=== PATIENT | female | born 1975 | race Caucasian/White ===

== ENCOUNTER → 2019-11-27 14:50 | Outpatient (CLI) | payer OTHER, SELFPAY ==
--- NOTE | ~2019-11-27 | MM_ITS ---
EXAMINATION: MM scrn caty implant BI w maura HISTORY: Screening mammogram TECHNIQUE: Craniocaudal and mediolateral oblique 3-D tomosynthesis images with implant displacement a nd synthetic 2-D images were generated. Craniocaudal and mediolateral oblique views of the breasts wi thout implant displacement were obtained using full field digital mammography. CAD analysis was submi tted and interpreted. COMPARISON: 08/11/2018, 06/01/2017 BREAST PARENCHYMAL COMPOSITION: The breasts are extremely dense, which lowers the sensitivity of mamm ography. FINDINGS: There is no evidence of suspicious mass, calcification, or architectural distortion to sugg est malignancy in either breast. There has been no suspicious interval change. IMPRESSION: 1. No mammographic evidence of malignancy. 2. Recommend routine screening mammography in one year. BI-RADS Category 1: Negative Reviewed, dictated and finalized at location A.
== END ==
PROVIDERS: PCP Emergency Medicine; Visit Provider Obstetrics & Gynecology
DX: Z12.31 Encounter for screening mammogram for malignant neoplasm of breast (principal)
CPT/HCPCS: 77063; 77067

== ENCOUNTER → 2021-02-01 09:24 | Outpatient (CLI) | payer OTHER, SELFPAY ==
--- NOTE | ~2021-02-01 | MM_ITS ---
EXAMINATION: MM scrn caty implant BI w maura HISTORY: Screening mammogram TECHNIQUE: Craniocaudal and mediolateral oblique 3-D tomosynthesis images with implant displacement a nd synthetic 2-D images were generated. Craniocaudal and mediolateral oblique views of the breasts wi thout implant displacement were obtained using full field digital mammography. CAD analysis was submi tted and interpreted. COMPARISON: Comparison to multiple prior studies sequentially, with oldest reviewed study dated 04/2017. BREAST PARENCHYMAL COMPOSITION: The breasts are heterogeneously dense, which may obscure small masses . FINDINGS: There is no evidence of suspicious mass, calcification, or architectural distortion to sugg est malignancy in either breast. There has been no suspicious interval change. IMPRESSION: 1. No mammographic evidence of malignancy. 2. Recommend routine screening mammography in one year. BI-RADS Category 1: Negative Reviewed, dictated and finalized at location A. [employer]
== END ==
PROVIDERS: Visit Provider Obstetrics & Gynecology
DX: Z12.31 Encounter for screening mammogram for malignant neoplasm of breast (principal)
CPT/HCPCS: 77063; 77067

== ENCOUNTER 2021-02-21 11:09 | Emergency (ER) | payer OTHER, SELFPAY ==
[2021-02-21 12:20] VITALS: BP 141/95; PULSE 72; RESP 16; TEMP 36.9; O2SAT 98
--- NOTE | 2021-02-21 13:23 | ED.URI ---
HPI - URI/Sore Throat General Chief Complaint: Upper Respiratory Infection Stated Complaint: body aches,headache,vomiting Source: patient Mode of arrival: ambulatory Limitations: no limitations History of Present Illness HPI Narrative: Patient is a 45-year-old female who presents complaining of sore throat, nausea, vomiting, body aches, headache, and fatigue. Patient is concerned as she cares for her father who is immune compromised. Patient reports taking [id number] medications with limited relief. Related Data Allergies Allergy/AdvReac Type Severity Reaction Status Date / Time sulfamethoxazole Allergy Unknown rash Verified 02/21/21 13:23 trimethoprim Allergy Unknown rash Verified 02/21/21 13:23 Review of Systems Review of Systems: CONSTITUTIONAL: Denies fever, chills, or sweats. Reports fatigue EYES: Denies visual changes, redness, or discharge. ENT: Reports sore throat CARDIOVASCULAR: Denies chest pain, palpitations, or edema. RESPIRATORY: Denies cough or dyspnea. GASTROINTESTINAL: Denies abdominal pain, reports nausea and vomiting x3. GENITOURINARY: Denies dysuria or hematuria. SKIN: Denies rash or itching. MUSCULOSKELETAL: Denies back pain, joint pain, or myalgia. NEUROLOGIC: Reports headache, denies numbness, dizziness, or weakness. PSYCHIATRIC: Denies anxiety or depression. PMFSH Past Medical History Medical History No significant past medical history Surgical History Surgical History No significant past surgical history Social History Social History (Updated 02/21/21 @ 13:28 by SALMA Pedroza) Smoking status: Never smoker Alcohol intake: current Substance use: never Living arrangements: with family Comments At the time of signature, I have reviewed and agree with nursing past medical, surgical, social, and family history unless otherwise noted. Please see nursing chart for further information. There is no relevant family history pertinent to the presenting complaint. Exam Narrative: GENERAL: Well-appearing, well-nourished, and in no acute distress. HEAD: Normocephalic, atraumatic. EYES: EOMI. No redness or drainage. Conjunctiva are normal. ENT: Mucous membranes pink and moist. Nares clear. No rhinorrhea. TMs normal bilaterally. Throat with mild erythema. Uvula midline. NECK: AROM. Supple. No lymphadenopathy. CHEST: No respiratory distress. HEART: Regular rate and rhythm. EXTREMITIES: Normal range of motion. No edema. SKIN: Warm, dry, no rash. NEURO: No focal deficits. Alert and oriented x3. Gait steady. PSYCH: Normal affect. No signs of depression or anxiety. Course Vital Signs Vital signs: Vital Signs Temperature 36.9 C 02/21/21 12:20 Pulse Rate 72 02/21/21 12:20 Respiratory Rate 16 02/21/21 12:20 Blood Pressure 141/95 H 02/21/21 12:20 Pulse Oximetry 98 02/21/21 12:20 Temperature 36.9 C 02/21/21 12:20 Pulse Rate 72 02/21/21 12:20 Respiratory Rate 16 02/21/21 12:20 Blood Pressure 141/95 H 02/21/21 12:20 Pulse Oximetry 98 02/21/21 12:20 Reviewed-patient is informed that they may have pre-hypertension or hypertension based on a blood pressure reading. I recommend the patient call the primary care provider listed on their discharge instructions or a physician of their choice this week to arrange follow-up for further evaluation of possible pre-hypertension or hypertension. MDM - URI/Sore Throat MDM Narrative Medical decision making narrative: Patient's rapid Covid, rapid strep and influenza are all negative at this time. Covid PCR to be sent. Patient to be sent with a prescription for Zofran for nausea. Patient is aware of the need for quarantine until PCR Covid testing returns. Patient agrees with plan of care. Patient is stable for discharge home with outpatient follow-up as discussed. Differential Diagnosis Differential diag
[2021-02-22 15:26] LABS: SARS-CoV-2 RNA PCR Positive
== END 2021-02-21 13:35 | disposition home or self-care (01) ==
PROVIDERS: Emergency Provider Nurse Practitioner; PCP Emergency Medicine
DX: U07.1 COVID-19 (principal)
CPT/HCPCS: 87081; 87426; 87804; 87880; 99213; C9803; G0463; U0003; U0005

== ENCOUNTER 2022-02-03 15:54 | Outpatient (CLI) | payer SELFPAY ==
--- NOTE | ~2022-02-03 | MM_ITS ---
EXAMINATION: MM scrn caty implant BI w maura HISTORY: Screening mammogram TECHNIQUE: Craniocaudal and mediolateral oblique 3-D tomosynthesis images with implant displacement a nd synthetic 2-D images were generated. Craniocaudal and mediolateral oblique views of the breasts wi thout implant displacement were obtained using full field digital mammography. CAD analysis was submi tted and interpreted. COMPARISON: 02/01/2021, 11/19/2019, 08/11/2018 BREAST PARENCHYMAL COMPOSITION: The breasts are extremely dense, which lowers the sensitivity of mamm ography. FINDINGS: There is no evidence of suspicious mass, calcification, or architectural distortion to sugg est malignancy in either breast. There has been no suspicious interval change. IMPRESSION: 1. No mammographic evidence of malignancy. 2. Recommend routine screening mammography in one year. BI-RADS Category 1: Negative Reviewed, dictated and finalized at location A. [employer]
== END 2022-02-03 15:55 ==
PROVIDERS: PCP Emergency Medicine; Visit Provider Emergency Medicine
DX: Z12.31 Encounter for screening mammogram for malignant neoplasm of breast (principal); Z98.82 Breast implant status
CPT/HCPCS: 77063; 77067

== ENCOUNTER 2022-06-30 00:26 | Day surgery (SDC) | payer BC, SELFPAY ==
[2022-06-19 09:41] VITALS: BMI 23.4
[2022-06-30 08:49] VITALS: BP 111/75; PULSE 60; RESP 18; TEMP 36.6; O2SAT 100
[2022-06-30] MEDS: LACTATED RINGERS 1,000 ML 150 ML IV CONT (09:01)
--- NOTE | 2022-06-30 10:08 | PM.HPGS ---
History of Present Illness History of Present Illness Consent: Risks, benefits, and alternatives have been discussed and questions answered. Patient agrees to proceed with procedure. Chief complaint: neoplasm screening Narrative: Tanvi Peck is a 46 year old female here for first screening colonoscopy Review of Systems Constitutional: Constitutional: Denies headache(s) and Denies weakness Eyes: Eyes: Denies blurry vision ENT: Reports Normal hearing present, Denies headache(s) and Denies neck pain Cardiovascular: Cardiovascular: Denies chest pain and Denies dyspnea Respiratory: Respiratory: Denies dyspnea Gastrointestinal: Gastrointestinal: Reports no additional gastrointestinal complaints Genitourinary: Genitourinary: Denies dysuria Musculoskeletal: Musculoskeletal: Denies neck pain Integumentary/Breasts: Skin/Breast: Denies dry skin Neurologic: Reports Normal hearing present, Denies headache(s) and Denies weakness Psychiatric: Psychiatric: Denies anxiety Endocrine: Endocrine: Denies change in body appearance Hematologic/Lymphatic: Hematologic/Lymphatic: Denies easy bleeding Allergic/Immunologic: Allergic/Immunologic: Denies urticaria PMFSH Past Medical History Medical History (Updated 06/30/22 @ 10:08 by Mehrdad Booth MD) Colon cancer screening No significant past medical history Surgical History Surgical History No significant past surgical history Social History Social History (Updated 02/21/21 @ 13:28 by Kandis Diop, INTERNET DEVELOPER) Smoking status: Former smoker Tobacco type: cigarettes Alcohol intake: never Substance use: never Substance use type: does not use Living arrangements: alone Spiritual care concerns: No Meds Home Medications and Allergies Home Medications Medication Instructions Recorded Confirmed Type dextroamphetamine-amphetamine 20 20 mg PO BID 06/19/22 06/30/22 History mg tablet Allergies Allergy/AdvReac Type Severity Reaction Status Date / Time sulfamethoxazole Allergy Unknown rash Verified 06/30/22 08:48 trimethoprim Allergy Unknown rash Verified 06/30/22 08:48 Vital Signs Vital Signs - 24 hr 06/30/22 08:49 Temperature 97.9 F Pulse Rate 60 Respiratory Rate 18 Blood Pressure 111/75 Pulse Oximetry 100 Oxygen Delivery Room Air Exam Const: General: comfortable and no acute distress HENMT: Face/Nose/Sinus: Normal nares present Eyes: General: appearance normal, both eyes and all related structures Neck: Neck: no JVD Resp: Auscultation: clear to auscultation bilaterally Cardio: Rate: regular rate Rhythm: regular rhythm GI: Inspection: non-distended GI Palp: Yes Soft to palpation Skin: General skin exam: normal color Neuro: General: gait normal Speech: normal speech Extrem: General: normal to inspection Psych: Mental Status: mental status grossly normal Assessment and Plan Assessment and plan (1) Colon cancer screening: Code(s): Z12.11 - Encounter for screening for malignant neoplasm of colon Status: Acute Assessment and Plan: colonoscopy
--- NOTE | 2022-06-30 10:09 | WPDANESEPPF ---
Anes - Initial Pre Proc Eval Procedure: Operation Date: 06/30/22 09:45 Proposed Procedures p Screening Colonoscopy - Mehrdad Booth MD Date/Time: 06/30/22 10:09 Surgeon: Mehrdad Booth MD Pre Op Diagnosis: neoplasm screening Patient Data Age: 46 Gender: F Height: 1.63 m Weight: 63.4 kg Last Vital Signs Temp 97.9 F 06/30/22 08:49 Pulse 60 06/30/22 08:49 Resp 18 06/30/22 08:49 BP 111/75 06/30/22 08:49 Pulse Ox 100 06/30/22 08:49 O2 Del Method Room Air 06/30/22 08:49 Allergies Allergy/AdvReac Type Severity Reaction Status Date / Time sulfamethoxazole Allergy Unknown rash Verified 06/30/22 08:48 trimethoprim Allergy Unknown rash Verified 06/30/22 08:48 Home Medications Medication Instructions Recorded Confirmed Type dextroamphetamine-amphetamine 20 20 mg PO BID 06/19/22 06/30/22 History mg tablet Patient hx anesthesia problems: none Family hx anesthesia problems: none Results Review: All pre-operative results and documents have been reviewed as part of the pre-operative evaluation. [facility] Past Medical History Medical History (Updated 06/30/22 @ 10:08 by Mehrdad Booth MD) Colon cancer screening No significant past medical history Surgical History Surgical History No significant past surgical history Social History Social History (Updated 02/21/21 @ 13:28 by Kandis Diop, DIRECTOR OF STUDENT AFFAIRS) Smoking status: Former smoker Tobacco type: cigarettes Alcohol intake: never Substance use: never Substance use type: does not use Living arrangements: alone Spiritual care concerns: No Anes - Eval Final PreProcedure Day of Procedure 06/30/22 10:09 Patient weight: normal Heart: regular rate and rhythm Lungs: clear to auscultation Airway: Mallampati scale class II Neurological: alert and oriented Last oral intake: >/= 8 hours ASA classification: II Emergent: no Anesthetic plan: proceed Anesthesia type and monitoring: general GIVS and standard monitoring Results Review: All pre-operative results and documents have been reviewed as part of the pre-operative evaluation. Informed Consent: The patient's anesthetic plan and its attendant risks and benefits were discussed with the patient/family/POA. Questions were solicited and answers provided to the satisfaction of the patient/family/POA.
[2022-06-30 10:31] VITALS: BP 106/71; PULSE 76; RESP 25; O2SAT 100
[2022-06-30 10:41] VITALS: BP 100/66; PULSE 62; RESP 23; O2SAT 100
[2022-06-30 10:51] VITALS: BP 103/69; PULSE 62; RESP 20; O2SAT 98
== END 2022-06-30 10:54 | disposition home or self-care (01) ==
PROVIDERS: PCP Emergency Medicine; Visit Provider Internal Medicine Gastroenterology
PROC: 0DJD8ZZ Inspection of Lower Intestinal Tract, Via Natural or Artificial Opening Endoscopic (ICD-10-PCS; CPT 45378; principal; 2022-06-30 09:45)
DX: Z12.11 Encounter for screening for malignant neoplasm of colon (principal); K57.30 Diverticulosis of large intestine without perforation or abscess without bleeding; K64.8 Other hemorrhoids; Z87.891 Personal history of nicotine dependence
CPT/HCPCS: 45378; J2704; J7120

== ENCOUNTER 2023-05-10 14:11 | Outpatient (CLI) | payer BC, SELFPAY ==
--- NOTE | ~2023-05-10 | MM_ITS ---
EXAMINATION: MM scrn caty implant BI w maura HISTORY: Screening mammogram TECHNIQUE: Craniocaudal and mediolateral oblique 3-D tomosynthesis images with implant displacement a nd synthetic 2-D images were generated. Craniocaudal and mediolateral oblique views of the breasts wi thout implant displacement were obtained using full field digital mammography. CAD analysis was submi tted and interpreted. COMPARISON: 02/03/2022, 01/2021, 11/27/2019 bilateral implant screening mammogram examinations BREAST PARENCHYMAL COMPOSITION: The breasts are extremely dense, which lowers the sensitivity of mamm ography. FINDINGS: Status post bilateral augmentation mammoplasty. There is no evidence of suspicious mass, ca lcification, or architectural distortion to suggest malignancy in either breast. There has been no quiles spicious interval change. IMPRESSION: 1. No mammographic evidence of malignancy. 2. Recommend routine screening mammography in one year. BI-RADS Category 1: Negative Reviewed, dictated and finalized at location A.
== END 2023-05-10 14:12 ==
PROVIDERS: PCP Emergency Medicine; Visit Provider Obstetrics & Gynecology
DX: Z12.31 Encounter for screening mammogram for malignant neoplasm of breast (principal)
CPT/HCPCS: 77063; 77067